=== PATIENT | female | born 1935 | race Caucasian/White ===

== ENCOUNTER → 2020-12-10 10:08 | Outpatient (BNVA) | payer MEDICARE, OTHER, SELFPAY | PROVIDERS: PCP Nurse Practitioner Family; Visit Provider Surgery Vascular Surgery | DX: I83.12 Varicose veins of left lower extremity with inflammation (principal) | CPT/HCPCS: 99202 ==

== ENCOUNTER 2020-12-15 10:25 | Outpatient (REF) | payer MEDICARE, OTHER, SELFPAY ==
--- NOTE | ~2020-12-15 | US_ITS ---
EXAMINATION: BILATERAL LOWER EXTREMITY VENOUS ULTRASOUND (Reflux Exam) CLINICAL INDICATION: This is an 85-year-old female with venous insufficiency and varicose veins. COMPARISON: None. TECHNIQUE: Color flow triplex imaging and compression Doppler was performed to evaluate both the deep and the superficial systems bilaterally. To evaluate the superficial system, the examination was performed in the upright position. Color-flow Doppler ultrasound and compression ultrasound were utilized. In addition, maneuvers were utilized to demonstrate reflux. FINDINGS: 1. DEEP VENOUS ULTRASOUND OF THE RIGHT LOWER EXTREMITY: Common Femoral Vein: Compressible, normal respiratory variation and augmented flow. Femoral vein: Compressible, normal color flow and augmentation. Popliteal Vein: Compressible, normal augmentation. Deep Reflux: There is no evidence of reflux in the deep system in either the common femoral vein or the popliteal vein. . There is no evidence of a Suresh's cyst. 2. SUPERFICIAL ULTRASOUND WITH DOPPLER OF RIGHT LOWER EXTREMITY GREAT SAPHENOUS VEIN: Saphenofemoral junction: 0.6 cm. There is no reflux. Mid thigh: 0.4 cm. There is no reflux. Above knee: 0.4 cm. There is no reflux. Below knee: 0.3 cm. The reflux time is 2272 ms. Mid calf: 0.3 cm. The reflux time is 544 ms. Ankle: 0.3 cm. There is no reflux. GSV REFLUX: There is only isolated distal reflux. There is no reflux at the junction. DUPLICATED GREAT SAPHENOUS VEIN: None SMALL SAPHENOUS VEIN: Upper: 0.3 cm Lower: 0.3 cm SSV REFLUX: No evidence of reflux. VEIN OF GIACOMINI: None Imaged. 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 VARICOSITIES: There are 0.3 cm thigh and calf varicose veins without reflux. 3. DEEP VENOUS ULTRASOUND OF THE LEFT LOWER EXTREMITY: Common Femoral Vein: Compressible, normal respiratory variation and augmented flow. Femoral vein: Compressible, normal color flow and augmentation. Popliteal Vein: Compressible, normal augmentation. Deep Reflux: There is no evidence of reflux in the deep system in either the common femoral vein or the popliteal vein. There is no evidence of a Suresh's cyst. 4. SUPERFICIAL ULTRASOUND WITH DOPPLER OF LEFT LOWER EXTREMITY GREAT SAPHENOUS VEIN: Saphenofemoral junction: 0 point cm Mid thigh: 0.5 cm Above knee: 0.5 cm Below knee: 0.3 cm Mid calf: 0.3 cm Ankle: 0.3 cm GSV REFLUX: No evidence of reflux. DUPLICATED GREAT SAPHENOUS VEIN: There is a 0.3 cm duplicated lateral great saphenous vein without reflux. SMALL SAPHENOUS VEIN: Upper: 0.4 cm Lower: 0.3 cm SSV REFLUX: No evidence of reflux. VEIN OF GIACOMINI: None Imaged. PERFORATORS: There is a 0.2 cm mid calf machine coil assembler without reflux to VARICOSITIES: None Imaged US/US venous duplex LE BI IMPRESSION: 1. There are bilateral patent great saphenous veins and small saphenous veins without evidence of junctional reflux. There is only isolated reflux below the knee in an isolated segment on the right great saphenous vein. 2. There are varicose veins in the proximal right thigh and mid calf measuring 0.3 cm without reflux.
== END 2020-12-15 10:26 | disposition home or self-care (01) ==
LOC: HO.US 10:25
PROVIDERS: PCP Nurse Practitioner Family; Visit Provider Surgery Vascular Surgery
DX: I83.12 Varicose veins of left lower extremity with inflammation (principal)
CPT/HCPCS: 93970

== ENCOUNTER → 2020-12-29 13:14 | Outpatient (BNVA) | payer MEDICARE, OTHER, SELFPAY | PROVIDERS: PCP Nurse Practitioner Family; Visit Provider Surgery Vascular Surgery | DX: I83.12 Varicose veins of left lower extremity with inflammation (principal) | CPT/HCPCS: 99212 ==